=== PATIENT | male | born 1990 | race Two or more races ===

== ENCOUNTER 2022-08-22 21:33 | Emergency (ER) | payer SELFPAY ==
[~2022-08-22] VITALS: Ht 167.6 cm; Wt 99.0 kg
[2022-08-22] MEDS ORDERED: MAALOX PLUS or MAALOX 30 ML PO ONE (22:45)
[2022-08-22 22:49] LABS: Basophils # (auto) 0.1 10 ^3/uL (0-0.2); Basophils % (auto) 0.8 % (0.0-2.0); Eosinophils # (auto) 0.2 10 ^3/uL (0-0.8); Eosinophils % (auto) 2.4 % (0.0-7.0); Hematocrit 44.3 % (41.0-53.0); Hemoglobin 14.9 g/dL (13.5-17.5); Lymphocytes # (auto) 3.5 10 ^3/uL (0.4-5.4); Lymphocytes % (auto) 38.1 % (10.0-50.0); Mean Corpuscular Hemoglobin 30.1 pg (28.0-32.0); Mean Corpuscular Hgb Conc. 33.7 g/dL (32.0-36.0); Mean Corpuscular Volume 89.3 fL (80.0-100.0); Monocytes # (auto) 0.7 10 ^3/uL (0-1.3); Monocytes % (auto) 7.3 % (0.0-12.0); Neutrophils # (auto) 4.7 10 ^3/uL (1.6-8.6); Neutrophils % (auto) 51.4 % (37.0-80.0); Nucleated Red Blood Cells % 0.7 %; Red Blood Cells 4.96 10^6/uL (4.5-5.90); Red Cell Distribution Width 13.2 % (11.8-14.3); White Blood Cell 9.2 10^3/uL (4.4-10.8)
[2022-08-22 23:01] LABS: Albumin 4.2 g/dL (3.4-5.0); Calcium 9.4 mg/dL (8.5-10.1); Potassium 4.2 mmol/L (3.5-5.1)
[2022-08-22 23:03] LABS: BUN/Creatinine Ratio 18.2 (10.0-20.0)
[2022-08-22 23:06] LABS: Total Protein 7.4 g/dL (6.4-8.2)
[2022-08-22 23:19] LABS: Urine Bacteria NONE SEEN /hpf (None Seen); Urine Blood Negative /uL (Negative); Urine Mucus FEW (None Seen); Urine Specific Gravity 1.029 (1.001-1.035); Urine WBC 1 /hpf (0 - 3)
[2022-08-23] MEDS ORDERED: HYDROcodone-ACET 5/325MG TAB PO ONE (01:00)
[2022-08-23] MEDS ORDERED: CALC100023 PO (01:09)
[2022-08-23] MEDS ORDERED: OMEP-335 PO (01:09)
[2022-08-23 02:31] VITALS: BP 124/88
== END 2022-08-23 02:33 | disposition home or self-care (01) ==
LOC: ER 21:33
DX: K21.9 Gastro-esophageal reflux disease without esophagitis (principal); K81.9 Cholecystitis, unspecified
CPT/HCPCS: 36415; 74176; 80053; 81001; 83690; 84484; 85025